=== PATIENT | male | born 1965 | race African-American/Black ===

== ENCOUNTER 2017-04-11 10:10 | Emergency (ER) | payer BC ==
[~2017-04-11] VITALS: Ht 190.5 cm; Wt 107.0 kg
[2017-04-11 10:22] VITALS: Ht 190.5 cm; Wt 107.0 kg
[2017-04-11 10:54] VITALS: BP 122/85
== END 2017-04-11 10:54 | disposition home or self-care (01) ==
LOC: ED 10:10
DX: M25.552 Pain in left hip (principal)

== ENCOUNTER 2017-04-12 08:28 | Emergency (ER) | payer BC ==
[~2017-04-12] VITALS: Ht 190.5 cm; Wt 102.5 kg
[2017-04-12 08:36] VITALS: Ht 190.5 cm; Wt 102.5 kg
[2017-04-12 10:25] VITALS: BP 123/82
== END 2017-04-12 10:25 | disposition home or self-care (01) ==
LOC: ED 08:28
DX: M54.32 Sciatica, left side (principal)
CPT/HCPCS: J1170; J1885; J7512; Q0162

== ENCOUNTER 2017-07-24 01:48 | Emergency (ER) | payer BC ==
[~2017-07-24] VITALS: Ht 190.5 cm; Wt 106.1 kg
[2017-07-24 01:57] VITALS: Ht 190.5 cm; Wt 106.1 kg
[2017-07-24 03:20] LABS: PLATELET COUNT 313 x10^3mcL (130-400)
[2017-07-24 03:27] LABS: CALCIUM 9.1 mg/dL (8.5-10.1); CARBON DIOXIDE 24.8 mmol/L (21-32); CHLORIDE SERUM 105 mmol/L (98-107); CREATININE SERUM 0.9 mg/dL (0.7-1.3); GFR1 > 60 mL/min; GLUCOSE SERUM 108 mg/dL (74-106); SODIUM SERUM 142 mmol/L (136-145)
[2017-07-24 03:40] LABS: ALKALINE PHOSPHATASE 275 U/L (46-116); ALT/SGPT 70 U/L (16-63); AST/SGOT 80 U/L (15-37); BILIRUBIN TOTAL 1.17 mg/dL (0.20-1.00); TOTAL PROTEIN, SERUM 6.6 g/dL (6.4-8.2)
[2017-07-24 04:02] LABS: RED CELL DISTRIBUTION WIDTH 21.8 % (11.5-14.5)
[2017-07-24 04:31] LABS: SEGMENTED NEUTROPHILS 30 % (37-75)
[2017-07-24 04:32] LABS: ATYPICAL LYMPH 15 %; BAND NEUTROPHIL 50 % (0-10); MONOCYTE 5 % (0-7)
[2017-07-24 04:33] LABS: rbc morphology (normal/abnorm) ABNORMAL (NORMAL)
[2017-07-24 04:34] LABS: PLATELET MORPHOLOGY LARGE PLATELET SEEN
[2017-07-24 04:39] LABS: C REACTIVE PROTEIN 0.8 mg/dL (<=0.9); MAGNESIUM 2.3 mg/dL (1.8-2.4); PHOSPHOROUS 5.8 mg/dL (2.5-4.9); URIC ACID 11.3 mg/dL (3.5-7.2)
[2017-07-24 04:52] LABS: UA SPECIFIC GRAVITY 1.025 (1.005-1.035); microscopic required? YES; urine erythrocyte NEGATIVE (NEGATIVE)
[2017-07-24 05:30] VITALS: BP 163/88
== END 2017-07-24 05:30 | disposition short-term general hospital (02) ==
LOC: ED 01:48
PROVIDERS: Emergency Medicine
DX: K62.5 Hemorrhage of anus and rectum (principal); E87.6 Hypokalemia
CPT/HCPCS: J7030

== ENCOUNTER 2020-01-13 10:07 | Emergency (ER) | payer BC ==
[~2020-01-13] VITALS: Ht 190.5 cm; Wt 116.6 kg
[2020-01-13 10:22] VITALS: Ht 190.5 cm; Wt 116.6 kg
[2020-01-13 12:37] VITALS: BP 146/86
== END 2020-01-13 12:15 | disposition home or self-care (01) ==
LOC: ED 10:07
DX: S46.001A Unspecified injury of muscle(s) and tendon(s) of the rotator cuff of right shoulder, initial encounter (principal); X58.XXXA Exposure to other specified factors, initial encounter; Y93.89 Activity, other specified; Y92.89 Other specified places as the place of occurrence of the external cause; Y99.8 Other external cause status
CPT/HCPCS: J1885